=== PATIENT | female | born 1990 | race Caucasian/White ===

== ENCOUNTER 2022-12-20 10:13 | Emergency (ER) | payer OTHER, SELFPAY ==
--- NOTE | 2022-12-20 10:15 | XRR_ITS ---
PROCEDURE INFORMATION: Exam: XR Left Hand Exam date and time: 12/20/2022 10:32 AM Age: 32 years old Clinical indication: Injury or trauma; Other: Smashed finger; Crushing; Left; Middle finger TECHNIQUE: Imaging protocol: Radiologic exam of the left hand. Views: 3 or more views. COMPARISON: No relevant prior studies available. FINDINGS: Bones/joints: No joint space narrowing, marginal osteophytes, erosions or subchondral sclerosis. No dislocation. Bone density is normal. No acute fracture. Chronic ununited fracture fragment at the ulnar styloid. Soft tissues: Slight soft tissue swelling. No radiopaque foreign body. XR/XR hand LT min 3V* [id number] IMPRESSION: No acute fracture.
[2022-12-20 10:39] VITALS: BP 107/69; PULSE 69; TEMP 36.6; O2SAT 100; BMI 19.3
--- NOTE | 2022-12-20 11:00 | ED_ITS ---
HPI - Extremity Problem General: Chief complaint: Extremity Injury, Upper Stated complaint: Left hand injury Time Seen by Provider: 12/20/22 10:38 Source: patient Mode of arrival: ambulatory Limitations: no limitations History of Present Illness: 32-year-old female who states that she shot her left hand in a door this morning at 8:00 states that she shot her to fingers her left middle and ring finger she has some pain in those fingers she rates the pain a 2 out of 10 denies any other injuries. Associated symptoms: Deny chest pain, fever(s) or rash Review of Systems Const: Denies: fever(s) or chills ENMT: Denies: throat pain or dental pain Card: Denies: chest pain Resp: Denies: dyspnea GI: Denies: abdominal pain, nausea, vomiting or diarrhea : Denies: dysuria Musc: Reports: extremity pain; Denies: neck pain or back pain Skin/Breast: Denies: rash PFSH ED PFSH: Medical History (Updated 12/20/22 @ 11:03 by Soco Edmonds MD) No pertinent past medical history Social History (Updated 12/20/22 @ 11:03 by Soco Edmonds MD) Substance/Drug Use: never Physical Exam Const: COMMON NORMALS: no acute distress and patient oriented x3 HENMT: COMMON NORMALS: normocephalic and atraumatic HEAD & SCALP: normocephalic and atraumatic Eye: COMMON NORMALS: conjunctivae normal CONJUNCTIVA: Yes conjunctivae normal Neck/C-Spine: COMMON NORMALS: supple Chest: COMMONS NORMALS: normal inspection of the chest Resp: COMMON NORMALS: normal respiratory effort Cardio: COMMON NORMALS: regular rate RATE: regular rate GI: INSPECTION: Yes normal to inspection Extremity: OTHER: Some slight tenderness to her middle ring finger no obvious deformity she has full range of motion Neuro: COMMON NORMALS: patient oriented x3 Psych: COMMON NORMALS: mental status grossly normal Skin: COMMON NORMALS: no rashes or lesions noted GENERAL SKIN EXAM: no rashes or lesions noted Course Vital Signs: Vital signs: Vital Signs Temperature 98 F 12/20/22 10:39 Pulse Rate 69 12/20/22 10:39 Blood Pressure 107/69 12/20/22 10:39 Pulse Oximetry 100 12/20/22 10:39 Oxygen Delivery Me thod Room Air 12/20/22 10:39 MDM - Extremity (Nontraumatic) Medical Decision Making Patient presents with a hand contusion after she had shut in a door no signs of fractures her exam is benign she is stable for discharge. 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
== END 2022-12-20 11:08 | disposition home or self-care (01) ==
PROVIDERS: Emergency Provider Emergency Medicine; PCP Family Medicine
DX: S60.222A Contusion of left hand, initial encounter (principal); W23.0XXA Caught, crushed, jammed, or pinched between moving objects, initial encounter
CPT/HCPCS: 73130; 99283

== ENCOUNTER 2024-03-30 09:50 | Outpatient (CLI) | payer OTHER, SELFPAY ==
--- NOTE | 2024-03-30 10:01 | MM_ITS ---
WS: [id number] BILATERAL 3D TOMOSYNTHESIS DIGITAL DIAGNOSTIC MAMMOGRAPHY WITH CAD CLINICAL INFORMATION: L BREAST LUMP @ 5 OCLOCK HISTORY: LEFT breast lump COMPARISON: None. TECHNIQUE: Bilateral CC, MLO, and ML views. FINDINGS: The breasts are composed of extremely dense tissue, which can limit the detection of small underlying mass lesions. Palpable marker subareolar LEFT breast near the 6 o'clock position. Ultrasound of this area is pending. Partially obscured ovoid nodule in this area. ULTRASOUND BREAST LEFT TECHNIQUE: Ultrasound left breast focused area of concern. CLINICAL INFORMATION: L BREAST LUMP @ 5 OCLOCK FINDINGS: Ultrasound LEFT breast in the area of palpable concern. At the 6 o'clock position subareolar is a wel l-circumscribed hypoechoic ovoid nodule measuring 1.1 x 0.7 x 1.2 cm. This appears to have an intradu ctal component also. Recommend further evaluation with ultrasound-guided biopsy. MM/[id number] IMPRESSION: BI-RADS: 4-Suspicious Finding-Biopsy Should Be Considered FOLLOW UP: US Guided Biopsy Recommended Recommend further evaluation with ultrasound-guided biopsy.
== END 2024-03-30 09:51 | disposition home or self-care (01) ==
LOC: RAD 09:52
PROVIDERS: Visit Provider Advanced Practice Midwife
DX: N63.23 Unspecified lump in the left breast, lower outer quadrant (principal); R92.30 Dense breasts, unspecified
CPT/HCPCS: 76642; 77062; G0279

== ENCOUNTER 2024-04-19 10:28 | Outpatient (CLI) | payer OTHER, MEDICAID, SELFPAY ==
--- NOTE | 2024-04-19 10:31 | US_ITS ---
WS: [id number] ULTRASOUND-GUIDED LEFT BREAST BIOPSY HISTORY: ABNORMAL MAMMOGRAM COMPARISON: 03/30/2024 Procedure, risks and complications are explained to the patient. Medications are reviewed. Consent is obtained. The mass in the LEFT breast is localized with ultrasound. Mass localizes to 6:00, subareolar. Skin is cleansed with ChloraPrep and anesthetized with 1% buffered lidocaine. Small dermatome is made. Under sterile conditions mass is biopsied with a 14-gauge Achieve needle. Multiple core biopsies are perfo rmed. Material placed in formalin and sent to pathology for review. No complications encountered. Breast tissue marker ([employer] ultrasound enhanced ribbon): None. Patient left the radiology suite with no complications. Patient [place] [facility] [place] [facility] with any concerns. US/[place] [id number] IMPRESSION: 1. Uncomplicated core needle biopsy LEFT breast mass at 6:00. 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 No aty puja or malignancy. RECOMMENDATION: No additional imaging follow-up necessary.
== END 2024-04-19 10:29 | disposition home or self-care (01) ==
LOC: RAD 10:29
PROVIDERS: Visit Provider Advanced Practice Midwife
DX: R92.8 Other abnormal and inconclusive findings on diagnostic imaging of breast (principal); N63.42 Unspecified lump in left breast, subareolar
CPT/HCPCS: 19083; 88305